=== PATIENT | female | born 1935 | race Caucasian/White ===

== ENCOUNTER 2016-09-14 10:47 | Outpatient (CLI) | payer MEDICARE, OTHER | END 2016-09-14 10:50 | LOC: LABRHC 10:47 | PROVIDERS: ATTEND Family Medicine | DX: N39.0 Urinary tract infection, site not specified (principal) | CPT/HCPCS: 87088; 87186 ==

== ENCOUNTER 2016-10-06 13:46 | Outpatient (CLI) | payer MEDICARE, OTHER ==
[2016-10-06 14:11] LABS: BASOPHILS % 0.7 (0.0-1.5); EOSINOPHILS % 2.4 % (0.0-6.8); LYMPHOCYTES # 1.8 # k/uL (0.6-4.0); MEAN CORPUSCULAR HEMOGLOBIN 32.4 pg (28.0-34.0); MONOCYTES # 0.4 # k/uL (0.0-0.9); MONOCYTES % 7.3 % (0.0-11.0); NEUTROPHILS # 3.3 # k/uL (1.4-7.7)
[2016-10-06 14:27] LABS: APPEARANCE,URINE Clear (CLEAR); COLOR,URINE Yellow (YELLOW); OCCULT BLOOD,URINE Negative (NEGATIVE); PH URINE 6.5 (5.0 - 8.0); UROBILINOGEN URINE 0.2 Eu (0.2-1.0)
== END 2016-10-06 13:47 ==
LOC: LAB 13:46
PROVIDERS: ATTEND Internal Medicine Nephrology
DX: N39.0 Urinary tract infection, site not specified (principal); E11.9 Type 2 diabetes mellitus without complications; I10 Essential (primary) hypertension; F32.9 Major depressive disorder, single episode, unspecified; R60.0 Localized edema; Z68.33 Body mass index [BMI] 33.0-33.9, adult
CPT/HCPCS: 36415; 80069; 81002; 83036; 85025

== ENCOUNTER 2016-12-27 08:55 | Outpatient (CLI) | payer MEDICARE, OTHER ==
[2016-12-27 09:41] LABS: BASOPHILS % 0.9 (0.0-1.5); EOSINOPHILS % 3.9 % (0.0-6.8); MEAN CORPUSCULAR HEMOGLOBIN 31.8 pg (28.0-34.0); MEAN CORPUSCULAR VOLUME 96.5 fl (80.0-100.0); MONOCYTES % 5.4 % (0.0-11.0); NEUTROPHILS # 3.6 # k/uL (1.4-7.7)
[2016-12-27 10:12] LABS: eGFR (African) > 60; eGFR (Non-African) > 60
== END 2016-12-27 08:56 ==
LOC: LAB 08:55
PROVIDERS: ATTEND Internal Medicine Cardiovascular Disease
DX: E78.2 Mixed hyperlipidemia (principal); I25.10 Atherosclerotic heart disease of native coronary artery without angina pectoris; I35.0 Nonrheumatic aortic (valve) stenosis; I48.2 Chronic atrial fibrillation
CPT/HCPCS: 36415; 80053; 80061; 80162; 85025

== ENCOUNTER 2017-06-06 13:02 | Outpatient (CLI) | payer MEDICARE, OTHER ==
[2017-06-06 13:12] LABS: APPEARANCE,URINE Cloudy (CLEAR); COLOR,URINE Yellow (YELLOW); OCCULT BLOOD,URINE Trace-intact (NEGATIVE); PH URINE 5.5 (5.0 - 8.0); UROBILINOGEN URINE 0.2 Eu (0.2-1.0)
== END 2017-06-06 13:03 ==
LOC: LAB 13:02
PROVIDERS: ATTEND Family Medicine
DX: N39.0 Urinary tract infection, site not specified (principal)
CPT/HCPCS: 81002; 87086

== ENCOUNTER 2017-07-28 10:25 | Outpatient (CLI) | payer MEDICARE, OTHER ==
[2017-07-28 10:39] LABS: BASOPHILS % 1.1 (0.0-1.5); EOSINOPHILS % 5.2 % (0.0-6.8); MEAN CORPUSCULAR HEMOGLOBIN 29.1 pg (28.0-34.0); MEAN CORPUSCULAR VOLUME 89.9 fl (80.0-100.0); MONOCYTES % 7.7 % (0.0-11.0); NEUTROPHILS # 2.2 # k/uL (1.4-7.7)
== END 2017-07-28 10:26 ==
LOC: LAB 10:25
PROVIDERS: ATTEND Internal Medicine Nephrology
DX: R60.0 Localized edema (principal); I10 Essential (primary) hypertension; E11.9 Type 2 diabetes mellitus without complications; N39.0 Urinary tract infection, site not specified; Z68.34 Body mass index [BMI] 34.0-34.9, adult
CPT/HCPCS: 36415; 80069; 83036; 85025

== ENCOUNTER 2017-08-14 16:41 | Outpatient (CLI) | payer MEDICARE, OTHER | END 2017-08-14 16:42 | LOC: LABRHC 16:41 | PROVIDERS: ATTEND Family Medicine | DX: N39.0 Urinary tract infection, site not specified (principal) | CPT/HCPCS: 87086 ==

== ENCOUNTER 2017-10-27 10:00 | Outpatient (CLI) | payer MEDICARE, OTHER | END 2017-10-27 10:02 | LOC: LABRHC 10:00 | PROVIDERS: ATTEND Family Medicine | DX: N39.0 Urinary tract infection, site not specified (principal) | CPT/HCPCS: 87086; 87186 ==

== ENCOUNTER 2017-11-28 09:44 | Outpatient (CLI) | payer MEDICARE, OTHER ==
[2017-11-28 10:10] LABS: BASOPHILS % 0.9 (0.0-1.5); MEAN CORPUSCULAR HEMOGLOBIN 29.7 pg (28.0-34.0); MEAN CORPUSCULAR VOLUME 94.4 fl (80.0-100.0); NEUTROPHILS # 3.5 # k/uL (1.4-7.7)
[2017-11-28 10:37] LABS: eGFR (African) > 60; eGFR (Non-African) 39
== END 2017-11-28 09:45 ==
LOC: LAB 09:44
PROVIDERS: ATTEND Internal Medicine Nephrology
DX: N39.0 Urinary tract infection, site not specified (principal); E11.9 Type 2 diabetes mellitus without complications; I10 Essential (primary) hypertension; Z68.34 Body mass index [BMI] 34.0-34.9, adult
CPT/HCPCS: 36415; 80053; 80061; 83036; 84443; 85025; 87086

== ENCOUNTER 2017-12-19 10:39 | Outpatient (CLI) | payer MEDICARE, OTHER | END 2017-12-19 10:40 | LOC: LABRHC 10:39 | PROVIDERS: ATTEND Family Medicine | DX: N39.0 Urinary tract infection, site not specified (principal) | CPT/HCPCS: 87086; 87186 ==

== ENCOUNTER 2018-01-10 09:10 | Outpatient (CLI) | payer MEDICARE, OTHER ==
[2018-01-10 09:28] LABS: BASOPHILS % 0.5 (0.0-1.5); EOSINOPHILS % 2.5 % (0.0-6.8); MEAN CORPUSCULAR VOLUME 95.5 fl (80.0-100.0); MONOCYTES % 7.4 % (0.0-11.0)
[2018-01-10 10:10] LABS: eGFR (African) > 60; eGFR (Non-African) > 60
== END 2018-01-10 09:12 ==
LOC: LAB 09:10
PROVIDERS: ATTEND Internal Medicine Cardiovascular Disease
DX: I25.10 Atherosclerotic heart disease of native coronary artery without angina pectoris (principal); I35.0 Nonrheumatic aortic (valve) stenosis; E78.2 Mixed hyperlipidemia; I48.2 Chronic atrial fibrillation
CPT/HCPCS: 36415; 80053; 80061; 80162; 85025

== ENCOUNTER 2018-03-01 13:26 | Outpatient (CLI) | payer MEDICARE, OTHER | END 2018-03-01 13:28 | LOC: LABRHC 13:26 | PROVIDERS: ATTEND Physician Assistant | DX: R30.0 Dysuria (principal) | CPT/HCPCS: 87086 ==

== ENCOUNTER 2018-03-02 13:40 | Outpatient (CLI) | payer MEDICARE, OTHER | END 2018-03-02 13:42 | LOC: LAB 13:40 | PROVIDERS: ATTEND Internal Medicine Cardiovascular Disease | DX: Z79.01 Long term (current) use of anticoagulants (principal) | CPT/HCPCS: 36415; 85610 ==

== ENCOUNTER 2018-04-16 16:18 | Outpatient (CLI) | payer MEDICARE, OTHER | END 2018-04-16 16:20 | LOC: LABRHC 16:18 | PROVIDERS: ATTEND Family Medicine | DX: R30.0 Dysuria (principal) | CPT/HCPCS: 87086; 87186 ==

== ENCOUNTER 2018-04-20 08:25 | Outpatient (CLI) | payer MEDICARE, OTHER ==
[2018-04-20 10:06] LABS: eGFR (African) > 60; eGFR (Non-African) > 60
[2018-04-20 10:57] LABS: BASOPHILS % 0.7 (0.0-1.5); EOSINOPHILS % 3.3 % (0.0-6.8); MEAN CORPUSCULAR HEMOGLOBIN 28.8 pg (28.0-34.0); MEAN CORPUSCULAR VOLUME 91.9 fl (80.0-100.0); MONOCYTES % 6.5 % (0.0-11.0); NEUTROPHILS # 2.9 # k/uL (1.4-7.7)
== END 2018-04-20 12:07 ==
LOC: LAB 08:25
PROVIDERS: ATTEND Internal Medicine Nephrology
DX: E11.9 Type 2 diabetes mellitus without complications (principal); I10 Essential (primary) hypertension; N39.0 Urinary tract infection, site not specified; Z68.34 Body mass index [BMI] 34.0-34.9, adult
CPT/HCPCS: 36415; 80053; 80061; 83036; 84443; 85025

== ENCOUNTER 2018-06-28 14:12 | Outpatient (CLI) | payer MEDICARE, OTHER | END 2018-06-28 14:13 | LOC: LABRHC 14:12 | PROVIDERS: ATTEND Physician Assistant | DX: R30.0 Dysuria (principal) | CPT/HCPCS: 87086 ==

== ENCOUNTER 2018-07-24 12:19 | Outpatient (CLI) | payer MEDICARE, OTHER | END 2018-07-24 12:20 | LOC: LABRHC 12:19 | PROVIDERS: ATTEND Family Medicine | DX: N39.0 Urinary tract infection, site not specified (principal); B96.20 Unspecified Escherichia coli [E. coli] as the cause of diseases classified elsewhere; Z16.24 Resistance to multiple antibiotics | CPT/HCPCS: 87086 ==

== ENCOUNTER 2018-10-09 12:51 | Outpatient (CLI) | payer MEDICARE, OTHER | END 2018-10-09 12:53 | LOC: LAB 12:51 | PROVIDERS: ATTEND Internal Medicine Nephrology | DX: E11.9 Type 2 diabetes mellitus without complications (principal); I10 Essential (primary) hypertension; R60.0 Localized edema; Z68.34 Body mass index [BMI] 34.0-34.9, adult | CPT/HCPCS: 36415; 80069; 83036; 84443 ==

== ENCOUNTER 2018-12-06 14:47 | Outpatient (CLI) | payer MEDICARE, OTHER | END 2018-12-06 14:48 | LOC: LABRHC 14:47 | PROVIDERS: ATTEND Family Medicine | DX: N39.0 Urinary tract infection, site not specified (principal); B96.89 Other specified bacterial agents as the cause of diseases classified elsewhere; Z16.11 Resistance to penicillins | CPT/HCPCS: 87086 ==

== ENCOUNTER 2019-01-15 08:15 | Outpatient (CLI) | payer MEDICARE, OTHER ==
[2019-01-15 08:44] LABS: BASOPHILS % 0.6 % (0.0-1.5); MONOCYTES % 8.2 % (0.0-11.0); NEUTROPHILS # 2.6 # k/uL (1.4-7.7)
== END 2019-01-15 08:17 ==
LOC: LAB 08:15
PROVIDERS: ATTEND Internal Medicine Cardiovascular Disease
DX: E78.2 Mixed hyperlipidemia (principal); I25.10 Atherosclerotic heart disease of native coronary artery without angina pectoris; I35.0 Nonrheumatic aortic (valve) stenosis; I48.2 Chronic atrial fibrillation
CPT/HCPCS: 36415; 80053; 80061; 80162; 85025

== ENCOUNTER 2019-04-04 13:55 | Outpatient (CLI) | payer MEDICARE, OTHER | END 2019-04-04 13:57 | LOC: LABRHC 13:55 | PROVIDERS: ATTEND Family Medicine | DX: N30.01 Acute cystitis with hematuria (principal) | CPT/HCPCS: 87086 ==

== ENCOUNTER 2019-04-30 14:10 | Outpatient (CLI) | payer MEDICARE, OTHER ==
[2019-04-30 15:38] LABS: APPEARANCE,URINE CLOUDY (CLEAR); COLOR,URINE YELLOW (YELLOW); OCCULT BLOOD,URINE TRACE-INTACT (NEGATIVE); PH URINE 5.5 (5.0 - 8.0); UROBILINOGEN URINE 0.2 Eu (0.2-1.0)
== END 2019-04-30 14:12 ==
LOC: LAB 14:10
PROVIDERS: ATTEND Family Medicine
DX: N30.01 Acute cystitis with hematuria (principal)
CPT/HCPCS: 81002

== ENCOUNTER 2019-05-08 14:52 | Outpatient (CLI) | payer MEDICARE, OTHER | END 2019-05-08 14:54 | LOC: LABRHC 14:52 | PROVIDERS: ATTEND Nurse Practitioner Family | DX: N39.0 Urinary tract infection, site not specified (principal) | CPT/HCPCS: 87086; 87186 ==

== ENCOUNTER 2019-05-22 15:29 | Outpatient (CLI) | payer MEDICARE, OTHER | END 2019-05-22 15:31 | LOC: LABRHC 15:29 | PROVIDERS: ATTEND Nurse Practitioner Family | DX: N39.0 Urinary tract infection, site not specified (principal) | CPT/HCPCS: 87086 ==

== ENCOUNTER 2019-06-18 13:24 | Outpatient (CLI) | payer MEDICARE, OTHER ==
[2019-06-18 13:50] LABS: BASOPHILS % 0.4 % (0.0-1.5); NEUTROPHILS # 3.2 # k/uL (1.4-7.7)
[2019-06-18 14:31] LABS: eGFR (Non-African) 42
== END 2019-06-18 13:29 ==
LOC: LAB 13:24
PROVIDERS: ATTEND Internal Medicine Nephrology
DX: E11.9 Type 2 diabetes mellitus without complications (principal); I10 Essential (primary) hypertension
CPT/HCPCS: 36415; 80069; 83036; 85025

== ENCOUNTER 2019-07-17 11:03 | Outpatient (CLI) | payer MEDICARE, OTHER | END 2019-07-17 11:08 | LOC: LABRHC 11:03 | PROVIDERS: ATTEND Family Medicine | DX: N39.0 Urinary tract infection, site not specified (principal) | CPT/HCPCS: 87086; 87186 ==

== ENCOUNTER 2019-08-05 14:24 | Outpatient (CLI) | payer MEDICARE, OTHER ==
[2019-08-05 14:37] LABS: BASOPHILS % 0.5 % (0.0-1.5); NEUTROPHILS # 3.2 # k/uL (1.4-7.7)
[2019-08-05 14:43] LABS: eGFR (Non-African) > 60
== END 2019-08-05 14:29 ==
LOC: LABRHC 14:24
PROVIDERS: ATTEND Family Medicine
DX: D50.9 Iron deficiency anemia, unspecified (principal); I10 Essential (primary) hypertension
CPT/HCPCS: 80053; 83540; 85025

== ENCOUNTER 2019-08-08 15:16 | Outpatient (CLI) | payer MEDICARE, OTHER | END 2019-08-08 15:21 | LOC: LABRHC 15:16 | PROVIDERS: ATTEND Family Medicine | DX: N39.0 Urinary tract infection, site not specified (principal) | CPT/HCPCS: 87086 ==